=== PATIENT | male | born 1995 | race Caucasian/White ===

== ENCOUNTER → 2019-04-30 20:00 | Outpatient (CLI) | payer MEDICAID, SELFPAY ==
[2014-07-24 04:16] VITALS: BMI 34.7
== END ==
PROVIDERS: Family Provider Family Medicine; PCP Family Medicine; Referring Provider Family Medicine; Visit Provider Family Medicine
DX: G47.10 Hypersomnia, unspecified (principal); R06.83 Snoring; R06.81 Apnea, not elsewhere classified; E66.01 Morbid (severe) obesity due to excess calories
CPT/HCPCS: 95810

== ENCOUNTER → 2019-07-18 19:50 | Outpatient (CLI) | payer MEDICAID, SELFPAY ==
[2019-05-09 08:22] VITALS: BMI 34.7
== END ==
PROVIDERS: Family Provider Family Medicine; PCP Family Medicine; Referring Provider Nurse Practitioner Acute Care; Visit Provider Nurse Practitioner Acute Care
DX: G47.33 Obstructive sleep apnea (adult) (pediatric) (principal)
CPT/HCPCS: 95811

== ENCOUNTER → 2019-08-02 11:00 | Outpatient (CLI) | payer MEDICAID, SELFPAY ==
[2019-05-09 08:22] VITALS: BMI 34.7
== END ==
PROVIDERS: PCP Family Medicine; Referring Provider Nurse Practitioner Acute Care; Visit Provider Nurse Practitioner Acute Care
DX: Z46.89 Encounter for fitting and adjustment of other specified devices (principal)